=== PATIENT | female | born 1975 | race Two or more races ===

== ENCOUNTER → 2019-09-25 | Outpatient (REF) | payer OTHER | LOC: M LAB LCGH 16:26 | PROVIDERS: ATTEND Obstetrics & Gynecology | DX: N92.6 Irregular menstruation, unspecified (principal) ==

== ENCOUNTER → 2021-12-02 | Outpatient (CLI) | payer OTHER | LOC: M RAD 07:22 | PROVIDERS: ATTEND Physician Assistant | DX: I10 Essential (primary) hypertension (principal) ==